=== PATIENT | male | born 1990 | race Two or more races ===

== ENCOUNTER → 2022-12-07 | Emergency (ER) | payer OTHER ==
[~2022-12-07] VITALS: Ht 167.6 cm; Wt 74.8 kg
[~2022-12-07] MED LIST: DICLOFENAC SODI75 MG PO; DOLOGESIC CAPSU1 CAP PO; GILTUSS LIQUID237 M1 PO; ORPH100T PO; OSEL75CA PO
== END | disposition home or self-care (01) ==
LOC: ER 21:37
DX: M62.838 Other muscle spasm (principal)

== ENCOUNTER 2023-10-04 16:07 | Emergency (ER) | payer OTHER ==
[~2023-10-04] VITALS: Ht 180.3 cm; Wt 81.6 kg
[2023-10-04] MEDS ORDERED: CEFTRIAXONE SODIUM 2,000 MG VIAL IV ONE (16:45)
[2023-10-04] MEDS ORDERED: KETOROLAC TROMETHAMINE 30 MG VIAL IV ONE (16:45)
[2023-10-04 17:36] LABS: HEMOGLOBIN 15.2 g/dL (13-16.00); MEAN CELL VOLUME 91.8 fL (80.0-100.00); MEAN CORPUSCULAR HEMOGLOBIN 31.6 pg (27.00-32.0); MEAN CORPUSCULAR HGB CONC 34.4 g/dl (32.0-36.0); PLATELET COUNT 196 K/uL (150-450); RED CELL DISTRIBUTION WIDTH 12.9 % (11.5-14.5)
[2023-10-04 17:42] LABS: ERYTHROCYTE SEDIMENTATION RATE 8 mm/hr
[2023-10-04] MEDS ORDERED: MORGIDOX100 MG PO (18:22)
== END 2023-10-04 18:48 | disposition home or self-care (01) ==
LOC: ER 16:08
PROVIDERS: General Practice
DX: S80.811A Abrasion, right lower leg, initial encounter (principal); W55.03XA Scratched by cat, initial encounter; X58.XXXA Exposure to other specified factors, initial encounter; Y93.89 Activity, other specified; Y92.89 Other specified places as the place of occurrence of the external cause; Y99.8 Other external cause status; L03.90 Cellulitis, unspecified